=== PATIENT | male | born 1950 | race African-American/Black ===

== ENCOUNTER 2021-05-06 07:30 | Outpatient (CLI) | payer MEDICARE ==
[2021-05-06] MEDS ORDERED: Iopamidol-370 76% 500 ML 1 ML ONE (11:21)
== END 2021-05-06 07:31 | disposition home or self-care (01) ==
LOC: BICCT 07:30
PROVIDERS: ATTEND Nurse Practitioner Family
DX: Z23 Encounter for immunization (principal); R63.4 Abnormal weight loss; I10 Essential (primary) hypertension; R68.89 Other general symptoms and signs; M10.9 Gout, unspecified; K21.00 Gastro-esophageal reflux disease with esophagitis, without bleeding; E78.5 Hyperlipidemia, unspecified; D64.9 Anemia, unspecified; R91.8 Other nonspecific abnormal finding of lung field; M87.9 Osteonecrosis, unspecified; N28.1 Cyst of kidney, acquired; N28.89 Other specified disorders of kidney and ureter
CPT/HCPCS: 71260; 74177

== ENCOUNTER 2024-06-28 14:05 | Inpatient (IN) | payer MEDICARE ==
[2024-06-28] MEDS ORDERED: Thrombin 5000 UNITS/5 ML VIAL ONE (17:20)
[2024-06-28] MEDS ORDERED: Vancomycin 1 GM VIAL ONE ×2 (17:26→18:39)
[2024-06-28] MEDS ORDERED: TETANUS, DIPHTHERIA TOX,ADULT (TDVAX) 0.5 ML VIAL IM ONE (17:39)
[2024-06-28] MEDS ORDERED: Dextrose 50% Abboject 50 ML SYRINGE SLOW IVP PRN (17:39)
[2024-06-28] MEDS ORDERED: Dextrose 5% in Water 1,000 ML IV PRN (17:39)
[2024-06-28] MEDS ORDERED: Glucagon 1 MG/ML KIT IM PRN (17:39)
[2024-06-28] MEDS ORDERED: CEFAZOLIN 2 GM VIAL ONE (17:48)
[2024-06-28] MEDS ORDERED: Sodium Chloride 0.9% 100 ML ONE ×2 (17:48→22:23)
[2024-06-28] MEDS ORDERED: hydrALAZINE 20 MG/ML VIAL SLOW IVP PRN (17:55)
[2024-06-28] MEDS ORDERED: Methocarbamol 500 MG TAB PO PRN (17:55)
[2024-06-28] MEDS ORDERED: Ondansetron PF 4 MG/2 ML Vial IVP PRN (17:55)
[2024-06-28] MEDS ORDERED: Ondansetron ODT 4 MG TAB PO PRN ×2 (17:55→18:21)
[2024-06-28] MEDS ORDERED: Acetaminophen 325 MG TAB PO PRN (17:55)
[2024-06-28] MEDS ORDERED: fentaNYL PF 100 MCG/2 ML SYRINGE ONE ×2 (17:57→19:39)
[2024-06-28] MEDS ORDERED: PROPOFOL 20 ML ONE (17:57)
[2024-06-28] MEDS ORDERED: Rocuronium Bromide 10 MG/ML (10ML VIAL) ONE ×2 (18:01→21:40)
[2024-06-28] MEDS ORDERED: Lorazepam 1 MG TAB PO PRN (18:21)
[2024-06-28] MEDS ORDERED: Lorazepam 2 MG/ML VIAL IM PRN (18:21)
[2024-06-28] MEDS ORDERED: Electrolyte Replacement Protocol 1 EACH FS SCH (18:30)
[2024-06-28] MEDS ORDERED: SUCCINYLCHOLINE/SOD CL,ISO/PF 200 MG/10 ML SYRINGE FS ONE (18:59)
[2024-06-28 19:17] LABS: #Basophils 0.05 10x3/uL (0.0-0.2); #Eosinphils Less than 0.03 10x3/uL (0.0-0.7); %Basophils 0.3 % (0.0-1.0); %Eosinophils 0.1 % (0.0-10.0); %Monocytes 4.5 % (0.0-10.0); %Neutrophils 89.7 % (42.0-75.0); Hematocrit 44.4 % (42.0-52.0); Mean Corpuscular HGB CONC 38.3 g/dL (32.0-36.0); Mean Corpuscular Hemoglobin 33.6 pg (27.0-31.0); Mean Corpuscular Volume 87.7 fL (78.0-98.0); Mean Platelet Volume 9.8 fL (7.4-10.4); Platelet Count 273 10x3/uL (130-400); Red Blood Cell (RBC) Count 5.06 mill/uL (4.70-6.10)
[2024-06-28 19:19] LABS: PTT 30.3 sec (22.9-36.1); Prothrombin Time 13.1 sec (12.0-14.7)
[2024-06-28] MEDS ORDERED: Dexamethasone 4 mg/ml Vial ONE (19:22)
[2024-06-28 19:24] LABS: Bilirubin, Direct 0.2 mg/dL (0.1-0.3); Magnesium 1.5 mg/dL (1.6-2.6); Phosphorus 3.4 mg/dL (2.3-4.7)
[2024-06-28 19:25] LABS: ALT (SGPT) 26 U/L (8-55); AST (SGOT) 30 U/L (5-34); Albumin 4.1 g/dL (3.4-4.8); Alkaline Phosphatase 78 U/L (40-110); Anion Gap 20 mmol/L (10-20); BUN (Urea Nitrogen) 9 mg/dL (8.4-25.7); Bilirubin, Total 0.7 mg/dL (0.2-1.2); Calc. Creatinine Clearance 0 mL/min (70-130); Calcium 9.7 mg/dL (7.8-10.44); Carbon Dioxide 24 mmol/L (23-31); Chloride 83 mmol/L (98-107); Estimated GFR 91; Globulin 3.9 g/dL (2.4-3.5); Glucose 96 mg/dL (83-110); Potassium 2.9 mmol/L (3.5-5.1); Sodium 124 mmol/L (136-145)
[2024-06-28] MEDS ORDERED: PHENYLEPHRINE-NS 100 MCG/ML 10 ML SYRINGE ONE ×2 (20:06→20:54)
[2024-06-28] MEDS ORDERED: SUGAMMADEX SODIUM 200 MG/2 ML VIAL ONE (22:01)
[2024-06-28] MEDS ORDERED: Sodium Chloride 0.9% 250 ML 250 ML ONE (22:23)
[2024-06-28] MEDS ORDERED: fentaNYL 50 mcg/mL 1 mL Vial ONE (22:53)
[2024-06-28] MEDS ORDERED: Lorazepam 2 MG/ML VIAL SLOW IVP PRN (23:46)
[2024-06-29] MEDS: fentaNYL 50 mcg/mL 1 mL Vial SLOW IVP SCH (00:16)
[2024-06-29] MEDS: Lactated Ringer's 1,000 ML IV SCH (00:16)
[2024-06-29] MEDS: fentaNYL 50 mcg/mL 1 mL Vial ONE (00:17)
[2024-06-29] MEDS: Lorazepam 1 MG TAB PO SCH (00:17)
[2024-06-29] MEDS: Multivit, Therapeutic 1 TAB PO SCH (00:17)
[2024-06-29] MEDS: Folic Acid 1 MG TAB PO SCH (00:17)
[2024-06-29] MEDS: Thiamine HCl 200 MG/2 ML VIAL SLOW IVP SCH (00:17)
[2024-06-29 00:37] VITALS: BMI 21.2
[2024-06-29 01:00] LABS: Amphetamine Not Detected (NotDetected); Barbiturates Screen Not Detected (NotDetected); Benzodiazepine Screen Not Detected (NotDetected); Cocaine Metabolite Screen Detected (NotDetected); Methadone Not Detected (NotDetected); Methamphetamine Not Detected (NotDetected); Opiate Screen Not Detected (NotDetected); Oxycodone Screen Not Detected (NotDetected); Phencyclidine (PCP) Not Detected (NotDetected); THC/Cannabinoid Screen Not Detected (NotDetected); Tricyclic Screen Not Detected (NotDetected)
[2024-06-29] MEDS: [UNRECOGNIZED DRUG - SUPPLY] IVPB SCH (01:04)
[2024-06-29] MEDS ORDERED: CEFAZOLIN 2 GM in Sodium Chloride 0.9% 100 ML IVPB SCH (02:00)
[2024-06-29] MEDS: CEFAZOLIN 2 GM in Sodium Chloride 0.9% 100 ML IVPB SCH (02:06)
[2024-06-29] MEDS: fentaNYL 50 mcg/mL 1 mL Vial SLOW IVP PRN (02:57)
[2024-06-29] MEDS: traMADol HCl 50 MG TAB PO PRN (05:43)
[2024-06-29 06:11] LABS: #Basophils Less than 0.03 10x3/uL (0.0-0.2); #Eosinphils Less than 0.03 10x3/uL (0.0-0.7); %Basophils 0.1 % (0.0-1.0); %Lymphocytes 6.2 % (21.0-51.0); %Monocytes 6.1 % (0.0-10.0); %Neutrophils 87.2 % (42.0-75.0); Hematocrit 43.8 % (42.0-52.0); Hemoglobin 16.3 g/dL (14.0-18.0); Mean Corpuscular HGB CONC 37.2 g/dL (32.0-36.0); Mean Corpuscular Hemoglobin 32.9 pg (27.0-31.0); Mean Corpuscular Volume 88.5 fL (78.0-98.0); Platelet Count 276 10x3/uL (130-400); RBC Distribution Width 11.9 % (11.5-14.5); Red Blood Cell (RBC) Count 4.95 mill/uL (4.70-6.10)
[2024-06-29 06:31] LABS: Anion Gap 16 mmol/L (10-20); BUN (Urea Nitrogen) 7 mg/dL (8.4-25.7); Calc. Creatinine Clearance 68 mL/min (70-130); Calcium 9.6 mg/dL (7.8-10.44); Carbon Dioxide 25 mmol/L (23-31); Chloride 88 mmol/L (98-107); Estimated GFR 90; Glucose 159 mg/dL (83-110); Sodium 126 mmol/L (136-145)
[2024-06-29] MEDS: Potassium Chloride 20 MEQ TAB PO SCH ×2 (08:01→20:32)
[2024-06-29] MEDS: Pantoprazole DR 40 MG TAB PO SCH (08:01)
[2024-06-29] MEDS: Magnesium 2 GM/50 ML(in water) 2 GM in Premix 1 BAG IVPB SCH (08:59)
[2024-06-29 13:54] LABS: Potassium 3.2 mmol/L (3.5-5.1)
[2024-06-29] MEDS ORDERED: Lorazepam 1 MG TAB PO PRN (18:21)
[2024-06-30 07:56] LABS: Magnesium 1.7 mg/dL (1.6-2.6)
[2024-06-30] MEDS: Magnesium 2 GM/50 ML(in water) 2 GM in Premix 1 BAG IVPB SCH (08:32)
[2024-06-30] MEDS: Lorazepam 0.5 MG TAB PO SCH (17:31)
[2024-06-30] MEDS ORDERED: Lorazepam 1 MG TAB PO PRN (18:21)
[2024-06-30] MEDS: tiZANidine HCl 4 MG TAB PO PRN (20:35)
[2024-06-30] MEDS: HYDROcodone/Acetaminophen 5/325 mg Tablet PO PRN (20:35)
[2024-07-01] MEDS: Thiamine 100 MG TAB PO SCH (08:41)
[2024-07-01] MEDS ORDERED: Lorazepam 0.5 MG TAB PO PRN (18:21)
[2024-07-02 13:27] VITALS: BP 165/78; TEMP 97.4
== END 2024-07-02 17:25 | disposition home or self-care (01) | DRG 471 ==
LOC: ERS 14:05 → CCU 18:47 → SDC/OP 18:50 → CCU 23:36 → SURG A 06-30 15:08
PROVIDERS: ADMIT Surgery; ATTEND Surgery
PROC: 0RG20A0 Fusion of 2 or more Cervical Vertebral Joints with Interbody Fusion Device, Anterior Approach, Anterior Column, Open Approach (ICD-10-PCS; principal; 2024-06-29)
DX: S12.401A Unspecified nondisplaced fracture of fifth cervical vertebra, initial encounter for closed fracture (principal); S06.4X0A Epidural hemorrhage without loss of consciousness, initial encounter; S12.500A Unspecified displaced fracture of sixth cervical vertebra, initial encounter for closed fracture; R40.2363 Coma scale, best motor response, obeys commands, at hospital admission; R40.2143 Coma scale, eyes open, spontaneous, at hospital admission; R40.2253 Coma scale, best verbal response, oriented, at hospital admission; I10 Essential (primary) hypertension; S12.600A Unspecified displaced fracture of seventh cervical vertebra, initial encounter for closed fracture; V47.5XXA Car driver injured in collision with fixed or stationary object in traffic accident, initial encounter; Y93.I9 Activity, other involving external motion; Y92.89 Other specified places as the place of occurrence of the external cause
CPT/HCPCS: 36415; 71045; 72125; 80048; 80053; 80306; 82248; 83735; 84100; 85025; 85610; 85730; 93005; C1713; G0390; J1100; J2704; J3010; J3370; J3411; J3475; J7050; J7120

== ENCOUNTER 2024-07-18 10:20 | Outpatient (CLI) | payer MEDICARE | END 2024-07-18 10:21 | disposition home or self-care (01) | LOC: RAD 10:20 | PROVIDERS: ATTEND Neurological Surgery | DX: S12.590D Other displaced fracture of sixth cervical vertebra, subsequent encounter for fracture with routine healing (principal); S12.690D Other displaced fracture of seventh cervical vertebra, subsequent encounter for fracture with routine healing; Z98.1 Arthrodesis status | CPT/HCPCS: 72040 ==